=== PATIENT | male | born 1990 | race Caucasian/White ===

== ENCOUNTER 2017-12-28 06:46 | Emergency (ER) | payer BC ==
[~2017-12-28] VITALS: Ht 172.7 cm; Wt 90.0 kg
[2017-12-28 07:35] LABS: URINE BILIRUBIN - DIPSTICK NEGATIVE (NEGATIVE); URINE BLOOD DIPSTICK LARGE (NEGATIVE); URINE COLOR YELLOW; URINE GLUCOSE - DIPSTICK NEGATIVE (NEGATIVE); URINE KETONE NEGATIVE (NEGATIVE); URINE LEUK ESTERASE NEGATIVE (NEGATIVE); URINE PH 5.5 (4.5-8.0); URINE PROTEIN - DIPSTICK NEGATIVE (NEG-TRACE); URINE SPECIFIC GRAVITY 1.025; URINE UROBILINOGEN - DIPSTICK 0.2 E.U./dL (0.2)
[2017-12-28 07:35] LABS: IMMATURE GRANULOCYTES 0.7 % (0.0-1.0); MEAN CELL VOLUME 83.3 fL CALC (80.0-100.0); MEAN CORPUSCULAR HGB 27.5 pG CALC (26.0-32.0); NEUT# 4.05 thou/uL (1.82-7.42); RED BLOOD COUNT 5.5 mill/uL (4.70-6.10); RED CELL DISTRI WIDTH 12.4 % (11.5-15.5)
[2017-12-28 07:36] LABS: HEMATOCRIT 45.8 % (39.0-50.0); HEMOGLOBIN 15.1 g/dl (14.0-18.0)
[2017-12-28 07:36] LABS: URINE CLARITY CLEAR; URINE NITRITE - DIPSTICK NEGATIVE (Negative)
[2017-12-28 07:41] LABS: URINE RBC 25-50 RBC/hpf (0-5)
[2017-12-28 07:54] LABS: ALBUMIN 4.1 g/dL (3.2-5.0); ALKALINE PHOSPHATASE 82 u/l (38-126); ANION GAP 15 (6-22 (CALC)); BILIRUBIN, TOTAL 0.5 mg/dL (0.0-1.4); BUN 15 mg/dL (9-20); BUN/CREATININE RATIO 17 (12-20 (CALC)); CARBON DIOXIDE 29 mmol/l (22-30); CHLORIDE 102 mmol/l (95-108); CREATININE 0.9 mg/dL (0.7-1.3); GFR > 60 ML/MIN (>=60 (CALC)); GFR FOR AFR.AMER. > 60 ML/MIN (>=60 (CALC)); POTASSIUM 4.5 mmol/l (3.5-5.1); SGOT/AST 25 u/l (17-59); SGPT/ALT 61 u/l (21-72); SODIUM 142 mmol/l (137-146)
[2017-12-28] MEDS ORDERED: LORTAB 1010 MG PO (09:31)
[2017-12-28] MEDS ORDERED: ZOFRAN ODT4 MG PO (09:31)
[2017-12-28 09:38] VITALS: BP 126/59
== END 2017-12-28 09:50 | disposition home or self-care (01) | DRG 694 ==
LOC: ED 06:46
PROVIDERS: Emergency Medicine
DX: N20.0 Calculus of kidney (principal)
CPT/HCPCS: Q9967